=== PATIENT | female | born 1950 | race Caucasian/White ===

== ENCOUNTER 2024-04-13 13:46 | Emergency (ER) | payer MEDICARE ==
[~2024-04-13] VITALS: Ht 175.2 cm; Wt 77.1 kg
[2024-04-13] MEDS ORDERED: SODIUM CHLORIDE 0.9% 1,000 ML IV ONE (14:00)
[2024-04-13] MEDS ORDERED: Ondansetron Hydrochloride 4 MG/2 ML VIAL IV ONE (14:00)
[2024-04-13] MEDS ORDERED: MORPHINE Sulfate 2 MG/ML SYR IV ONE (14:00)
[2024-04-13 14:12] LABS: BASO % 0.6 % (0.0-1.0); EOS # 0.3 10*3/uL (0.0-0.4); EOS % 3.9 % (1.0-4.0); HEMATOCRIT 40.5 % (37.0-47.0); MEAN CELL VOLUME 89.2 fl (81.0-99.0); MEAN CORPUSCULAR HGB 28.2 pg (27.0-31.0); MEAN CORPUSCULAR HGB CONC 31.6 g/dl (33.0-37.0); MEAN PLATELET VOLUME 10.2 fl (9.6-12.3); MONO # 0.4 10*3/uL (0.1-1.0); MONO % 6.1 % (3.0-9.0); NEUT # 5.1 10*3/uL (2.3-7.9); PLATELET COUNT AUTOMATED 182 10*3/uL (130-400); RED BLOOD COUNT 4.54 10*6/uL (4.10-5.10); RED CELL DISTRI WIDTH 12.5 % (0-14.5)
[2024-04-13 14:26] LABS: BUN 16 mg/dl (9-23); CHLORIDE 106 mmol/L (98-107); POTASSIUM 4.5 mmol/L (3.4-5.1)
== END 2024-04-13 15:03 | disposition home or self-care (01) ==
LOC: ED 13:46
PROVIDERS: Emergency Medicine
DX: R07.89 Other chest pain (principal); R05.9 Cough, unspecified; Z88.0 Allergy status to penicillin